=== PATIENT | female | born 1955 | race Caucasian/White ===

== ENCOUNTER → 2017-02-07 | Day surgery (SDC) | payer BC ==
[~2017-02-07] MED LIST: BUPIVACAINE HCL PF 0.25% 30 ML VIAL ONE; ESTR0.5T9 PO; KETOROLAC TROMETHAMINE 30 MG/ML (IVP) VIAL IV PUSH ONE; LACTATED RINGER'S 1000 ML INJ 1,000 ML ONE; MEPERIDINE HCL 25 MG/ML VIAL ONE; MIDAZOLAM HCL 2 MG/2 ML VIAL ONE; NEXI20CA PO; ONDANSETRON HCL 4 MG/2 ML VIAL IV PUSH ONE; PROPOFOL 200 MG/20 ML AMP IV ONE; SERT100 PO; TYLE3 PO; ceFAZolin 2 GM PREMIX 50 ML ONE
--- NOTE | 2017-02-09 19:31 | TN ---
cc: TESSA STRAUSS DPM DATE OF SURGERY: 02/09/2017 PREOPERATIVE DIAGNOSIS: Right hallux varus. POSTOPERATIVE DIAGNOSIS: Right hallux varus. OPERATIVE PROCEDURE PERFORMED: Right first metatarsal osteotomy with right hallux varus repair. SURGEON: Tessa Strauss DPM. ELEMENTARY LIBRARIAN: Staff. ANESTHESIA: General endotracheal anesthesia plus 20 mL of 0.25% Marcaine plain and local block. ESTIMATED BLOOD LOSS: Minimal. SPECIMENS: None. PROPHYLAXIS: 2 grams Ancef IV preop. HEMOSTASIS: Right ankle tourniquet at 250 mmHg x102 minutes. CONDITION: Stable to post-anesthesia care unit. COMPLICATIONS: None. DISPOSITION: Non-weightbearing right foot in short Cam boot and knee scooter. Follow up in clinic in one week for dressing change. INDICATIONS FOR THE PROCEDURE: This patient is a 61-year-old female who presented to my clinic with continued deformity and pain to the right great toe in a position called hallux varus. 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 We discussed the risks, benefits and potential complications in great detail to the patient and she understood and consented to move forward with surgery. DESCRIPTION OF THE PROCEDURE IN DETAIL: She was seen in preop holding by myself, nursing staff and anesthesia where the correct patient, side and site were all confirmed to be correct and the right great toe area. She was taken back to the surgical suite and placed in supine position where attention was directed to the right first metatarsophalangeal joint area at the dorsomedial aspect where a linear incision was made crossing the first metatarsophalangeal joint. Dissection was taken carefully down to the capsule in that same area and a T capsulotomy was utilized in order to gain access to the joint. Following this, a Reverdin-[place]. Leonard osteotomy was cut into the lateral aspect of the first metatarsal head and neck area in order to both shorten and to realign the cartilage to redirect it in order to reduce the hallux varus deformity utilizing C-arm for guidance of reduction. Following shortening and increasing slightly the inner metatarsal angle between first and second metatarsals, a temporary fixation was utilized and correction of the deformity was confirmed via C-arm imaging and extensor tendon lengthening was utilized in order to further reduce the deformity and the deformity was found to reduce entirely and stay reduced once the extensor hallucis longus tendon was lengthened. A 16-mm Arthrex cannulated screw was utilized from dorsal to plantar through the osteotomy for fixation as well as an Arthrex 2.0 mm Trim-It pin. An absorbable K-wire pin was utilized from distal medial and plantar to dorsal lateral and proximal in that direction in order to achieve a second point of fixation through the osteotomy site. The fixation was found be stable and maintained reduction of the deformity without issue. Following irrigation, the capsule was then loosely approximated using 3-0 Vicryl suture followed by an incision made to the dorsal and lateral aspect of the first metatarsophalangeal joint where a lateral capsulorrhaphy was performed in order to achieve further reduction and maintenance of reduction of the hallux varus deformity. The medial capsule was left open in order to not to pull medial tension at the first metatarsophalangeal joint area to maintain reduction of the deformity. The skin was closed with 3-0 nylon suture. Final images were taken with C-arm followed by dressing consisting of Xeroform, 4x4s, cast padding and Simon bandage to the right lower extremity. She tolerated procedure and anesthesia well without complications and was returned to post-anesthesia care unit with vital signs stable and vascular status intact to the right foot. She will be non-weightbearing to the right foot and will follow up in clinic in one week for dressing change Tessa Strauss /FELIPE /4:29 PM /7:24 PM
== END | disposition home or self-care (01) ==
LOC: ESDC 06:17
PROVIDERS: ATTEND Podiatrist Foot & Ankle Surgery
DX: M20.31 Hallux varus (acquired), right foot (principal)
CPT/HCPCS: 01480; 28306; 73630; 76000; C1713; J0690; J1885; J2175; J2250; J2405; J3010; J7120

== ENCOUNTER 2017-11-18 13:17 | Emergency (ER) | payer BC ==
[~2017-11-18] VITALS: Ht 157.5 cm; Wt 92.0 kg
[~2017-11-18 13:17] MED LIST changes: -BUPIVACAINE HCL PF 0.25% 30 ML VIAL ONE; -KETOROLAC TROMETHAMINE 30 MG/ML (IVP) VIAL IV PUSH ONE; -LACTATED RINGER'S 1000 ML INJ 1,000 ML ONE; -MEPERIDINE HCL 25 MG/ML VIAL ONE; -MIDAZOLAM HCL 2 MG/2 ML VIAL ONE; -ONDANSETRON HCL 4 MG/2 ML VIAL IV PUSH ONE; -PROPOFOL 200 MG/20 ML AMP IV ONE; -ceFAZolin 2 GM PREMIX 50 ML ONE
[2017-11-18 13:56] VITALS: BP 139/81; PULSE 101; RESP 16; TEMP 97.7; O2SAT 96
[2017-11-18] MEDS ORDERED: SERT-129 PO (16:44)
--- NOTE | 2017-11-18 17:45 | RADRPT ---
EXAM DATE/TIME: 11/18/2017 17:20 [facility] COMPARISON: No previous studies available for comparison. INDICATIONS : Fall. Low back pain. MEDICAL HISTORY : None. SURGICAL HISTORY : None. ENCOUNTER: Initial ACUITY: 1 day PAIN SCORE: 7/10 LOCATION: Bilateral Paraspinal FINDINGS: The lumbar vertebral bodies are normal in height. The disc spaces are grossly preserved. Mild margina l spurs are seen. There is facet hypertrophy at the L4-L5 and L5-S1 levels. The sacroiliac joints are grossly intact. CONCLUSION: Mild degenerative change. Jesse Marie MD on November 18, 2017 at 17:39 Board Certified Radiologist. This report was verified electronically.
--- NOTE | 2017-11-18 17:47 | RADRPT ---
EXAM DATE/TIME: 11/18/2017 17:20 [facility] COMPARISON: No previous studies available for comparison. INDICATIONS : Fall. Right shoulder pain. MEDICAL HISTORY : None. SURGICAL HISTORY : None. ENCOUNTER: Initial ACUITY: 1 day PAIN SCORE: 5/10 LOCATION: Right scapular FINDINGS: AC joint degenerative changes with subacromial spurring. Anatomic alignment. No fracture. Bony min eralization is normal. [place] clear CONCLUSION: Degenerative changes, no fracture Hansel Wrgiht MD FACR on November 18, 2017 at 17:42 Board Certified Radiologist. This report was verified electronically.
--- NOTE | 2017-11-18 17:51 | RADRPT ---
EXAM DATE/TIME: 11/18/2017 17:20 [facility] COMPARISON: No previous studies available for comparison. INDICATIONS : Fall. Left great toe injury. Bruising and swelling. MEDICAL HISTORY : None. SURGICAL HISTORY : None. ENCOUNTER: Initial ACUITY: 1 day PAIN SCORE: 8/10 LOCATION: Left lateral FINDINGS: 2 screws are seen through the first metatarsal. There is chronic deformity from the postsurgical tomas ge or there is hypertrophic change of the dorsal aspect of the mid first metacarpal. An acute fractur e is not seen. There appears to been resection or remodeling the fifth PIP joint region. CONCLUSION: Chronic change as described above. An acute abnormality is not seen. Jesse Marie MD on November 18, 2017 at 17:47 Board Certified Radiologist. This report was verified electronically.
[2017-11-18] MEDS ORDERED: ROBA750T PO (18:10)
--- NOTE | 2017-11-18 18:11 | PD ---
HPI Chief Complaint: Injury Time Seen by Provider: 16:52 Travel History International Travel<30 days: No Contact w/Intl Traveler<30days: No Traveled to known affect area: No History of Present Illness HPI 8-year-old female here with left great toe pain, right shoulder pain, low back pain after a trip and fall yesterday. She reports she stubbed the toe falling onto the right shoulder. There was no head injury or loss of consciousness. Symptom severity is moderate. Aggravated by movement and slightly relieved with rest. She denies headache, neck pain, chest pain, shortness breath, abdominal pain, paresthesia or weakness of the extremities. PFSH Past Medical History Anxiety: Yes Depression: Yes Diminished Hearing: No GERD: Yes Influenza Vaccination: Yes Menopausal: Yes Past Surgical History Hysterectomy: Yes Social History Alcohol Use: Yes (1-2 DRINKS DAILY) Tobacco Use: No Substance Use: No Allergies-Medications (Allergen,Severity, Reaction): Coded Allergies: No Known Allergies (Verified Adverse Reaction, Unknown, 11/18/17) Reported Meds & Prescriptions Reported Meds & Active Scripts Active Reported Sertraline (Sertraline HCl) 100 Mg Tab 100 Mg PO DAILY Review of Systems Except as stated in HPI: all other systems reviewed are Neg Physical Exam Narrative GENERAL: Alert well-appearing 8-year-old female SKIN: Warm and dry. HEAD: Normocephalic. Atraumatic EYES: Pupils equal, round, reactive to light. EOMs intact. No injection or drainage. NECK: Supple, trachea midline. No cervical midline tenderness CARDIOVASCULAR: Regular rate and rhythm without murmurs, gallops, or rubs. No chest wall tenderness RESPIRATORY: Breath sounds equal bilaterally. No accessory muscle use. GASTROINTESTINAL: Abdomen soft, non-tender, nondistended. MUSCULOSKELETAL: No cyanosis, or edema. Right upper extremity: +TTP proximal humerus and anterior aspect of the shoulder, no deformity. Full passive range of motion. Pain with active forward extension and external rotation of the shoulder. 2+ distal pulses. Normal sensation. Brisk cap refill. The foot: + TTP left great toe with ecchymosis and mild swelling. Normal sensation. Brisk cap refill. No nail injury BACK: +TTP LUMBAR SPINE. No step-off deformity. No CVA tenderness. Data Data Last Documented VS Vital Signs Date Time Temp Pulse Resp B/P (MAP) Pulse Ox O2 Delivery O2 Flow Rate FiO2 3/25/18 13:56 97.7 101 16 139/81 (100) 96 Orders Orders Toe (Min 2vws) (11/18/17 ) Spine, Lumbar - Ltd (Ap & Lat) (11/18/17 ) Shoulder, Limited(2vws) (11/18/17 ) MDM Medical Decision Making Medical Screen Exam Complete: Yes Emergency Medical Condition: Yes Differential Diagnosis Fracture versus contusion versus sprain Narrative Course External female here with multiple minor injuries to the fall from a standing position. She has a normal neurologic exam. Extremities are neurovascularly intact. X-ray of the lumbar spine, right shoulder, left great toe are negative for fracture. All findings were discussed with patient. Diagnosis Primary Impression: Contusion Qualified Codes: S90.112A - Contusion of left great toe without damage to nail , initial encounter Additional Impression: Lumbar strain Qualified Codes: S39.012A - Strain of muscle, fascia and tendon of lower back , initial encounter Referrals: Primary Care Physician Scripts Methocarbamol (Robaxin) 750 Mg Tab 750 MG PO QID for Muscle Spasm, #12 TAB 0 Refills Prov: Merly Porter 11/18/17 Disposition: 01 DISCHARGE HOME Condition: Stable Merly Porter Nov 18, 2017 18:11
== END 2017-11-18 18:33 | disposition home or self-care (01) ==
LOC: PHED 13:17 → PHEFT 18:33
DX: S39.012A Strain of muscle, fascia and tendon of lower back, initial encounter (principal); S90.112A Contusion of left great toe without damage to nail, initial encounter; M25.511 Pain in right shoulder; F41.9 Anxiety disorder, unspecified; F32.9 Major depressive disorder, single episode, unspecified; K21.9 Gastro-esophageal reflux disease without esophagitis; Z79.899 Other long term (current) drug therapy; W01.0XXA Fall on same level from slipping, tripping and stumbling without subsequent striking against object, initial encounter
CPT/HCPCS: 72100; 73030; 73660; 99284